=== PATIENT | male | born 1950 | race Caucasian/White ===

== ENCOUNTER 2019-12-14 06:26 | Outpatient (CLI) | payer OTHER ==
[2019-12-14 13:58] LABS: #Basophils 0.1 thou/uL (0.0-0.2); #Eosinphils 0.1 thou/uL (0.0-0.7); #Lymphocytes 1.2 thou/uL (1.20-3.40); #Monocytes 0.5 thou/uL (0.11-0.59); #Neutrophils 4.2 thou/uL (1.40-6.50); %Basophils 1.1 % (0.0-1.0); %Eosinophils 2.3 % (0.0-10.0); %Lymphocytes 19.2 % (21.0-51.0); %Monocytes 8.1 % (0.0-10.0); %Neutrophils 69.3 % (42.0-75.0); Mean Corpuscular Hemoglobin 30.1 pg (27.0-31.0); Mean Corpuscular Volume 88.4 fL (78.0-98.0); Mean Platelet Volume 8.9 fL (7.4-10.4); Platelet Count 168 thou/uL (130-400); RBC Distribution Width 12.6 % (11.5-14.5); Red Blood Cell (RBC) Count 4.66 mill/uL (4.70-6.10)
[2019-12-14 14:12] LABS: ALT (SGPT) 12 U/L (8-55); AST (SGOT) 19 U/L (5-34); Albumin 4.3 g/dL (3.4-4.8); Alkaline Phosphatase 79 U/L (40-110); Anion Gap 15 mmol/L (10-20); BUN (Urea Nitrogen) 19 mg/dL (8.4-25.7); Bilirubin, Total 1.5 mg/dL (0.2-1.2); Calc. Creatinine Clearance 0 mL/min (70-130); Carbon Dioxide 22 mmol/L (23-31); Chloride 105 mmol/L (98-107); Estimated GFR-MDRD 90; Globulin 2.5 g/dL (2.4-3.5); Glucose 101 mg/dL (80-115); Potassium 4.2 mmol/L (3.5-5.1); Protein, Total 6.8 g/dL (5.8-8.1); Sodium 138 mmol/L (136-145)
[2019-12-14 19:44] LABS: SARS-CoV-2 MS2 Positive; SARS-CoV-2 N Gene Negative; SARS-CoV-2 S Gene Negative; SARS-CoV-2 by NAA Not Detected (NotDetected); SARS-CoV-2 orf1ab Negative
--- NOTE | 2019-12-18 14:15 | EKG ---
Test Reason : Blood Pressure : / mmHG Vent. Rate : 059 BPM Atrial Rate : 059 BPM P-R Int : 152 ms QRS Dur : 084 ms QT Int : 396 ms P-R-T Axes : 077 082 046 degrees QTc Int : 392 ms Sinus bradycardia with sinus arrhythmia Otherwise normal ECG No previous ECGs available Confirmed by SIXTO PETERSON ([id number]) on 12/18/2019 2:14:36 PM Referred By: LARRY Confirmed By:SIXTO PETERSON
== END 2019-12-14 06:27 | disposition home or self-care (01) ==
LOC: LABBT 06:26
PROVIDERS: ATTEND Surgery
DX: Z01.818 Encounter for other preprocedural examination (principal); K40.90 Unilateral inguinal hernia, without obstruction or gangrene, not specified as recurrent; Z20.828 Contact with and (suspected) exposure to other viral communicable diseases
CPT/HCPCS: 80053; 85025; 87635; 93005; 93010; U0003

== ENCOUNTER 2019-12-19 07:00 | Day surgery (SDC) | payer OTHER ==
[2019-12-17 12:15] VITALS: BMI 23.9
[2019-12-19] MEDS ORDERED: Bupivacaine/Epinephrine 0.25% 30 ML VIAL ONE (08:08)
[2019-12-19] MEDS ORDERED: Fentanyl 100 MCG/2 ML VIAL ONE (08:57)
[2019-12-19] MEDS ORDERED: EPHEDRINE 25 MG/5 ML SYRINGE ONE (09:30)
[2019-12-19] MEDS ORDERED: Ondansetron PF 4 MG/2 ML Vial ONE (09:30)
[2019-12-19] MEDS ORDERED: Lidocaine 1% PF 5 ML VIAL ONE (09:30)
[2019-12-19] MEDS ORDERED: PROPOFOL 200 MG/20 ML VIAL ONE (09:30)
[2019-12-19] MEDS ORDERED: Glycopyrrolate 0.2 MG/ML 5 ML SYRINGE ONE (09:30)
[2019-12-19] MEDS ORDERED: Dexamethasone 20 MG/5 ML VIAL ONE (09:30)
--- NOTE | 2019-12-19 20:40 | OP ---
DATE OF PROCEDURE: 12/19/2019 PREOPERATIVE DIAGNOSIS: Right inguinal hernia. PROCEDURE PERFORMED: Right inguinal hernia repair with mesh. INDICATIONS: A 69-year-old male, with a painful right inguinal hernia. FINDINGS: Right indirect inguinal hernia. DESCRIPTION OF PROCEDURE: After informed consent was obtained, the patient was taken to the operating room, given total IV anesthesia, placed in the supine position. His groin area was prepped and draped in usual fashion. Local anesthesia was infiltrated subcutaneously and deep. Transverse right inguinal incision was performed and subcu divided sharply. The fascia of external oblique was incised in direction of its fibers through the external ring. Spermatic cord was isolated with a Ronald drain. Cremasteric fibers were . The hernia sac was found. This was dissected from surrounding cord structures down to the internal ring, reduced. Reduction was maintained utilizing a PHS hernia system. The posterior layer was placed in the preperitoneal space, anterior was laid out, sutured to the pubic tubercle medial with a 2-0 Prolene suture. Tucked under the external oblique fascia laterally. The notch was cut out for the spermatic cord. The cord placed anatomically. The external oblique fascia closed over the cord with a running 3-0 Vicryl. Francisco Javier was closed with interrupted 3-0 Vicryl and the skin closed with a running subcuticular 4-0 Rapide. Steri-Strips applied. Sterile bandage applied. The patient tolerated the procedure well, transferred to Recovery in good condition. Sponge and needle count verified correct x2. Job ID: [id number]
== END 2019-12-19 11:49 | disposition home or self-care (01) ==
LOC: SDC 07:00
PROVIDERS: ATTEND Surgery
PROC: 0YU50JZ Supplement Right Inguinal Region with Synthetic Substitute, Open Approach (ICD-10-PCS; principal; 2019-12-19)
DX: K40.90 Unilateral inguinal hernia, without obstruction or gangrene, not specified as recurrent (principal); H40.9 Unspecified glaucoma; Z79.899 Other long term (current) drug therapy; Z87.891 Personal history of nicotine dependence
CPT/HCPCS: C1781; J0690; J1100; J2405; J2704; J3010

== ENCOUNTER 2021-05-15 08:58 | Outpatient (CLI) | payer OTHER ==
[2021-05-15 10:40] LABS: Mean Corpuscular HGB CONC 33.7 g/dL (32.0-36.0); Mean Corpuscular Volume 91.9 fl (81.2-95.1); Mean Platelet Volume 10.5 fl (7.4-10.4); Platelet Count 155 10x3/uL (150-450); RBC Distribution Width 12.6 % (11.5-14.5)
[2021-05-15 10:49] LABS: Anion Gap 12 mmol/L (10-20); BUN (Urea Nitrogen) 20 mg/dL (8.4-25.7); Calc. Creatinine Clearance 0 mL/min (70-130); Calcium 8.7 mg/dL (7.8-10.44); Carbon Dioxide 28 mmol/L (23-31); Chloride 106 mmol/L (98-107); Glucose 89 mg/dL (83-110); Potassium 3.9 mmol/L (3.5-5.1); Sodium 142 mmol/L (136-145)
[2021-05-15 19:24] LABS: SARS-CoV-2 PCR by NAA Not Detected (NotDetected)
== END 2021-05-15 08:59 | disposition home or self-care (01) ==
LOC: LABBT 08:58
PROVIDERS: ATTEND Otolaryngology Plastic Surgery within the Head & Neck
DX: Z01.818 Encounter for other preprocedural examination (principal); D36.7 Benign neoplasm of other specified sites; J34.89 Other specified disorders of nose and nasal sinuses; R04.0 Epistaxis; J34.2 Deviated nasal septum; Z20.822 Contact with and (suspected) exposure to COVID-19
CPT/HCPCS: 80048; 85027; 93005; 93010; U0003; U0005

== ENCOUNTER 2021-11-24 11:00 | Outpatient (CLI) | payer OTHER | END 2021-11-24 11:01 | disposition home or self-care (01) | LOC: PET 11:00 | PROVIDERS: ATTEND Internal Medicine Hematology & Oncology | DX: C30.0 Malignant neoplasm of nasal cavity (principal); M89.9 Disorder of bone, unspecified | CPT/HCPCS: 78815; A9552 ==

== ENCOUNTER 2023-05-27 09:04 | Outpatient (CLI) | payer OTHER | END 2023-05-27 09:05 | disposition home or self-care (01) | LOC: CT 09:04 | PROVIDERS: ATTEND Radiology Radiation Oncology | DX: C76.0 Malignant neoplasm of head, face and neck (principal); J32.0 Chronic maxillary sinusitis | CPT/HCPCS: 70487; 82565 ==

== ENCOUNTER 2023-09-23 08:29 | Outpatient (CLI) | payer OTHER ==
[2023-09-23 09:57] LABS: #Basophils 0.06 10x3/uL (0.0-0.2); #Eosinphils 0.13 10x3/uL (0.0-0.5); #Monocytes 0.49 10x3/uL (0.0-1.1); #Neutrophils 2.56 10x3/uL (1.5-8.4); %Basophils 1.3 % (0.0-2.0); %Eosinophils 2.9 % (0.0-6.0); %Lymphocytes 27.2 % (18.0-47.0); %Monocytes 10.9 % (0.0-10.0); %Neutrophils 57.3 % (40.0-75.0); Hematocrit 40.7 % (38.8-50.0); Hemoglobin 14.6 g/dL (13.5-17.5); Mean Corpuscular HGB CONC 35.9 g/dL (32.0-36.0); Mean Corpuscular Hemoglobin 32.4 pg (27.0-33.0); Mean Corpuscular Volume 90.4 fL (81.2-95.1); Mean Platelet Volume 11.1 fL (7.4-10.4); Platelet Count 166 10x3/uL (150-450); RBC Distribution Width 11.9 % (11.5-14.5); White Blood Cell (WBC) Count 4.5 10x3/uL (3.5-10.5)
== END 2023-09-23 08:30 | disposition home or self-care (01) ==
LOC: LABBT 08:29
PROVIDERS: ATTEND Orthopaedic Surgery
DX: Z01.818 Encounter for other preprocedural examination (principal); G56.20 Lesion of ulnar nerve, unspecified upper limb
CPT/HCPCS: 85025; 93005; 93010

== ENCOUNTER 2023-09-30 10:03 | Day surgery (SDC) | payer OTHER ==
[2023-09-23 09:09] VITALS: BMI 25.1
[2023-09-30] MEDS ORDERED: EPINEPHrine 1 MG/ML VIAL ONE (11:25)
[2023-09-30] MEDS ORDERED: Bupivacaine PF 0.5% 30 ML VIAL ONE (11:25)
[2023-09-30] MEDS ORDERED: CEFAZOLIN 2 GM VIAL ONE (11:29)
[2023-09-30] MEDS ORDERED: Sodium Chloride 0.9% 100 ML ONE (11:29)
[2023-09-30] MEDS ORDERED: fentaNYL PF 100 MCG/2 ML SYRINGE ONE (11:36)
[2023-09-30] MEDS ORDERED: PROPOFOL 20 ML ONE (11:37)
[2023-09-30] MEDS ORDERED: Glycopyrrolate 0.2 MG/ML 5 ML SYRINGE ONE (12:00)
[2023-09-30] MEDS ORDERED: Lidocaine 1% PF 5 ML VIAL ONE (12:00)
[2023-09-30] MEDS ORDERED: Ondansetron PF 4 MG/2 ML Vial ONE (12:00)
[2023-09-30] MEDS ORDERED: ePHEDrine Sulfate 50 MG/10 ML VIAL ONE (12:11)
== END 2023-09-30 14:55 | disposition home or self-care (01) ==
LOC: SDC 10:03
PROVIDERS: ATTEND Orthopaedic Surgery
PROC: 01N40ZZ Release Ulnar Nerve, Open Approach (ICD-10-PCS; principal; 2023-09-30)
DX: G56.21 Lesion of ulnar nerve, right upper limb (principal); Z88.6 Allergy status to analgesic agent
CPT/HCPCS: A6223; J0171; J0665; J2405; J2704; J3490